=== PATIENT | male | born 1950 | race Two or more races ===

== ENCOUNTER 2025-05-02 08:57 | Outpatient (CLI) | payer MEDICARE ==
[2025-05-02 09:31] LABS: Estimated GFR - POC 78.0
[2025-05-02] MEDS ORDERED: Iopamidol 370 76% 100 ML VIAL ONE (14:39)
== END 2025-05-02 08:58 | disposition home or self-care (01) ==
LOC: CT 08:57
PROVIDERS: ATTEND Internal Medicine Hematology & Oncology
DX: C61 Malignant neoplasm of prostate (principal); I26.99 Other pulmonary embolism without acute cor pulmonale; K80.20 Calculus of gallbladder without cholecystitis without obstruction; R93.2 Abnormal findings on diagnostic imaging of liver and biliary tract; J98.11 Atelectasis; I89.8 Other specified noninfective disorders of lymphatic vessels and lymph nodes; N28.1 Cyst of kidney, acquired; N32.89 Other specified disorders of bladder; I70.90 Unspecified atherosclerosis; I77.1 Stricture of artery; K57.30 Diverticulosis of large intestine without perforation or abscess without bleeding; K42.9 Umbilical hernia without obstruction or gangrene; M47.819 Spondylosis without myelopathy or radiculopathy, site unspecified
CPT/HCPCS: 36415; 71260; 74177; 82565; Q9967